=== PATIENT | female | born 1960 | race Caucasian/White ===

== ENCOUNTER → 2016-09-27 | Outpatient (CLI) | payer BC ==
[~2016-09-27] VITALS: Ht 162.6 cm; Wt 123.4 kg
[~2016-09-27] MED LIST: CABO60TA PO; CURC500C PO; GLUCPOW24 PO; HYDR50TAB PO; IRON1TAB PO; LIDOCAINE 2% INJ 100 MG/5 ML SDV (FOR ANES.) As Ordered ONE; LOSA50TA20 PO; MULT1TAB18 PO; NS 1,000 ML IV ONE; OMEG100011 PO; PROPOFOL 200 MG/20 ML VIAL As Ordered ONE; VITA500055 PO; VITATAB21 PO
--- NOTE | 2016-09-27 10:45 | ROOR ---
Patient Name: Marlys Ramirez Procedure Date: 09/27/2016 10:33 AM Date of : 1960 Age: 55 Room: [facility] Gender: Female Note Status: Finalized Procedure: Upper GI endoscopy Indications: Heartburn Providers: Jemal Pepper MD Referring MD: Neisha BETANCOURT DO Requesting Provider: Medicines: Monitored Anesthesia Care Complications: No immediate complications. Procedure: Pre-Anesthesia Assessment: - The heart rate, respiratory rate, oxygen saturations, blood pressure, adequacy of pulmonary ventilation, and response to care were monitored throughout the procedure. The Endoscope was introduced through the mouth, and advanced to the second part of duodenum. The upper GI endoscopy was accomplished without difficulty. The patient tolerated the procedure well. Findings: The Z-line was regular and was found 40 cm from the incisors. Localized mild inflammation characterized by aphthous ulcerations was found in the gastric fundus. The exam of the duodenum was otherwise normal. Impression: - Z-line regular, 40 cm from the incisors. - Acute gastritis. - No specimens collected. Recommendation: - Discharge patient to home. - Continue present medications. - Follow an antireflux regimen. - Return to referring physician. - Return to referring physician. - The findings and recommendations were discussed with the patient's family. Jemal Pepper MD Jemal Pepper MD 09/27/2016 10:44:57 AM This report has been signed electronically. Number of Addenda: 0 Note Initiated On: 09/27/2016 10:33 AM Estimated Blood Loss: Estimated blood loss: none.
--- NOTE | 2016-09-27 11:04 | ROOR ---
Patient Name: Marlys Ramirez Procedure Date: 09/27/2016 10:34 AM Date of : 1960 Age: 55 Room: [facility] Gender: Female Note Status: Finalized Procedure: Total Colonoscopy to Cecum Indications: Rectal bleeding Providers: Jemal Pepper MD Referring MD: Neisha BETANCOURT DO Requesting Provider: Medicines: Monitored Anesthesia Care Complications: No immediate complications. Procedure: Pre-Anesthesia Assessment: - The heart rate, respiratory rate, oxygen saturations, blood pressure, adequacy of pulmonary ventilation, and response to care were monitored throughout the procedure. The Colonoscope was introduced through the anus and advanced to the cecum, identified by appendiceal orifice and ileocecal valve. The colonoscopy was performed without difficulty. The patient tolerated the procedure well. The quality of the bowel preparation was good. Findings: The perianal and digital rectal examinations were normal. Non-bleeding internal hemorrhoids were found during retroflexion. The hemorrhoids were small and Grade I (internal hemorrhoids that do not prolapse). Multiple small and large-mouthed diverticula were found in the recto-sigmoid colon, sigmoid colon and descending colon. The exam was otherwise without abnormality on direct and retroflexion views. Impression: - Non-bleeding internal hemorrhoids. - Diverticulosis in the recto-sigmoid colon, in the sigmoid colon and in the descending colon. - The examination was otherwise normal on direct and retroflexion views. - No specimens collected. - The exam was otherwise normal to the cecum. Recommendation: - Patient has a contact number available for emergencies. The signs and symptoms of potential delayed complications were discussed with the patient. Return to normal activities tomorrow. Written discharge instructions were provided to the patient. - High fiber diet. - Discharge patient to home. - Continue present medications. - Repeat colonoscopy in 5 years for surveillance. - Return to referring physician. - The findings and recommendations were discussed with the patient's family. Jemal Pepper MD Jemal Pepper MD 09/27/2016 11:04:27 AM This report has been signed electronically. Number of Addenda: 0 Note Initiated On: 09/27/2016 10:34 AM Estimated Blood Loss: Estimated blood loss: none.
[2016-09-27 11:20] VITALS: BP 139/80
== END ==
LOC: M OPP 09:49
PROVIDERS: ATTEND Internal Medicine Gastroenterology
DX: K62.5 Hemorrhage of anus and rectum (principal); K64.0 First degree hemorrhoids; K57.30 Diverticulosis of large intestine without perforation or abscess without bleeding; Z86.010 Personal history of colon polyps; R12 Heartburn; K29.00 Acute gastritis without bleeding; I10 Essential (primary) hypertension; G47.30 Sleep apnea, unspecified; E66.9 Obesity, unspecified; Z79.899 Other long term (current) drug therapy; Z88.8 Allergy status to other drugs, medicaments and biological substances; Z87.42 Personal history of other diseases of the female genital tract; Z85.528 Personal history of other malignant neoplasm of kidney; Z09 Encounter for follow-up examination after completed treatment for conditions other than malignant neoplasm

== ENCOUNTER → 2016-12-13 | Outpatient (REF) | payer BC ==
[~2016-12-13] MED LIST changes: -LIDOCAINE 2% INJ 100 MG/5 ML SDV (FOR ANES.) As Ordered ONE; -NS 1,000 ML IV ONE; -PROPOFOL 200 MG/20 ML VIAL As Ordered ONE
== END ==
LOC: M SFHCWAGY 10:52
PROVIDERS: ATTEND Nurse Practitioner Women's Health
DX: Z12.4 Encounter for screening for malignant neoplasm of cervix (principal)

== ENCOUNTER → 2016-12-13 | Outpatient (CLI) | payer BC | LOC: M WHC 10:09 | PROVIDERS: ATTEND Nurse Practitioner Women's Health | DX: Z12.31 Encounter for screening mammogram for malignant neoplasm of breast (principal); Z53.9 Procedure and treatment not carried out, unspecified reason ==

== ENCOUNTER → 2017-12-14 | Outpatient (REF) | payer BC ==
[2017-12-18 15:09] LABS: HPV HYBRID CAPTURE II Negative (Negative)
== END ==
LOC: M SFHCWAGY 15:52
DX: Z12.4 Encounter for screening for malignant neoplasm of cervix (principal)
CPT/HCPCS: G0123

== ENCOUNTER → 2018-12-17 | Outpatient (REF) | payer BC ==
[~2018-12-17] MED LIST changes: -LOSA50TA20 PO; +LOSA50TA88 PO
== END ==
LOC: M SFHCWAGY 13:59
PROVIDERS: ATTEND Nurse Practitioner Women's Health
DX: Z12.4 Encounter for screening for malignant neoplasm of cervix (principal)
CPT/HCPCS: 87624; G0123

== ENCOUNTER → 2018-12-17 | Outpatient (CLI) | payer BC ==
--- NOTE | 2018-12-17 16:18 | REPMRS ---
Patient History The patient states she had a clinical breast exam in 12/2018. Patient is postmenopausal, has history of other cancer at age 54, is currently receiving chemotherapy, and is nulliparous. Family history of breast cancer at age 50 or over in maternal aunt, breast cancer at age 50 or over in maternal aunt, pancreatic cancer at age 50 or over in maternal aunt, prostate cancer in paternal uncle. US Guided Breast Biopsy of the right breast, July 25, 2016. Benign FNA biopsy of the left breast, 1982. Took progesterone for 9 months. Digital Woman Screen Mammo: December 17, 2018 - Exam #: [id number] Bilateral CC and MLO view(s) were taken. Technologist: Ne Cardenas, Technologist Prior study comparison: July 17, 2016, right breast digital mammo diagnostic unilateral, performed at [facility] and. October 18, 2015, digital woman screen mammo performed at [facility]. September 30, 2014, digital woman screen mammo performed at [facility]. FINDINGS: There are scattered fibroglandular densities. There has been no change in the appearance of the mammogram from the prior studies. There is a mild amount of scattered fibroglandular density which is fairly symmetric. There is no interval development of dominant mass, architectural distortion, or grouped microcalcification suggestive of malignancy. 3-D tomosynthesis shows no additional findings. Assessment: BI-RADS/ACR category 1 mammogram. Negative Mammogram. Recommendation Routine screening mammogram of both breasts in 1 year (for women over age 40). This patient's Lifetime Breast Cancer Risk is estimated at 16.0 %. This mammogram was interpreted with the aid of an FDA-approved computer-aided dectection system. Electronically Signed By: Blayne Corea MD 12/17/18 [id number]
== END ==
LOC: M WHC 10:23
PROVIDERS: ATTEND Nurse Practitioner Women's Health
DX: Z12.31 Encounter for screening mammogram for malignant neoplasm of breast (principal); Z80.3 Family history of malignant neoplasm of breast; Z80.0 Family history of malignant neoplasm of digestive organs; Z80.42 Family history of malignant neoplasm of prostate; Z79.899 Other long term (current) drug therapy

== ENCOUNTER → 2019-06-24 | Outpatient (REF) | payer BC | LOC: M LAB REF 16:01 | PROVIDERS: ATTEND Surgery | DX: L98.0 Pyogenic granuloma (principal); L91.8 Other hypertrophic disorders of the skin ==

== ENCOUNTER → 2019-07-16 | Outpatient (REF) | payer BC | LOC: M LAB REF 12:37 | PROVIDERS: ATTEND Surgery | DX: L98.0 Pyogenic granuloma (principal) ==

== ENCOUNTER 2019-09-08 12:38 | Outpatient (CLI) | payer BC ==
[~2019-09-08] VITALS: Ht 162.6 cm; Wt 74.8 kg
[2019-09-08 12:40] VITALS: BP 128/73
[2019-09-08] MEDS: MAG SULF 1GM/100ML (MAG RUN) X 2 DOSES (2GM TOTAL) IV SCH ×4 (13:04→14:02)
[2019-09-08] MEDS ORDERED: MAGN1CAP PO (13:14)
[2019-09-08] MEDS ORDERED: LEVO175T19 PO (13:14)
[2019-09-08] MEDS ORDERED: [UNRECOGNIZED DRUG - CODE] PO (13:14)
[2019-09-08] MEDS ORDERED: XGEVINJ SC (13:14)
[2019-09-08] MEDS ORDERED: ESOM1CAP5 PO (13:14)
[2019-09-08] MEDS ORDERED: CALCTAB89 PO (13:14)
[2019-09-08] MEDS ORDERED: OPDI240I IV (13:14)
[2019-09-08] MEDS ORDERED: DIPH2.5T15 PO (13:15)
[2019-09-08] MEDS ORDERED: SODIUM CHLORIDE 0.9% INJ 10 ML SYR IV PRN (15:00)
[2019-09-08 15:10] VITALS: BP 108/74
[2019-09-09] MEDS ORDERED: SODIUM CHLORIDE 0.9% INJ 10 ML SYR IV SCH (09:00)
== END 2019-09-08 15:20 | disposition home or self-care (01) ==
LOC: M INFU 12:38
PROVIDERS: ATTEND Family Medicine
DX: E83.42 Hypomagnesemia (principal)
CPT/HCPCS: 96365; 96366; J3475

== ENCOUNTER 2019-09-10 12:49 | Outpatient (CLI) | payer BC ==
[~2019-09-10] VITALS: Ht 162.6 cm; Wt 74.8 kg
[~2019-09-10 12:49] MED LIST changes: +CALCTAB89 PO; +DIPH2.5T15 PO; +ESOM1CAP5 PO; +LEVO175T19 PO; +MAGN1CAP PO; +OPDI240I IV; +XGEVINJ SC; +[UNRECOGNIZED DRUG - CODE] PO
[2019-09-10 12:50] VITALS: BP 109/73
[2019-09-10] MEDS: MAG SULF 1GM/100ML (MAG RUN) X 2 DOSES (2GM TOTAL) IV SCH ×4 (12:55→13:58)
[2019-09-10] MEDS ORDERED: SODIUM CHLORIDE 0.9% INJ 10 ML SYR IV PRN (13:00)
[2019-09-10 15:00] VITALS: BP 124/73
[2019-09-11] MEDS ORDERED: SODIUM CHLORIDE 0.9% INJ 10 ML SYR IV SCH (09:00)
== END 2019-09-10 15:20 | disposition home or self-care (01) ==
LOC: M INFU 12:49
PROVIDERS: ATTEND Family Medicine
DX: E83.42 Hypomagnesemia (principal)
CPT/HCPCS: 96365; 96366; J1642; J3475

== ENCOUNTER → 2019-10-23 | Outpatient (REF) | payer BC | LOC: M LAB REF 16:44 | PROVIDERS: ATTEND Family Medicine | DX: E03.9 Hypothyroidism, unspecified (principal) ==

== ENCOUNTER → 2020-02-18 | Outpatient (REF) | payer BC | LOC: M LAB REF 17:01 | PROVIDERS: ATTEND Surgery | DX: S51.009D Unspecified open wound of unspecified elbow, subsequent encounter (principal); W18.30XD Fall on same level, unspecified, subsequent encounter; Y92.009 Unspecified place in unspecified non-institutional (private) residence as the place of occurrence of the external cause ==

== ENCOUNTER → 2020-03-30 | Outpatient (REF) | payer BC ==
[2020-03-30 17:48] LABS: PERCENT SATURATION 12.9 % (13.2-45.0)
[2020-03-30 18:13] LABS: FOLATE 11.6 NG/ML
== END ==
LOC: M LAB REF 16:59
PROVIDERS: ATTEND Internal Medicine Nephrology
DX: D64.9 Anemia, unspecified (principal)

== ENCOUNTER → 2020-04-05 | Outpatient (REF) | payer BC | LOC: M SFHCWAGY 16:47 | PROVIDERS: ATTEND Nurse Practitioner Women's Health | DX: Z12.4 Encounter for screening for malignant neoplasm of cervix (principal); Z01.419 Encounter for gynecological examination (general) (routine) without abnormal findings ==

== ENCOUNTER → 2020-04-05 | Outpatient (CLI) | payer BC ==
--- NOTE | 2020-04-05 16:11 | REPMRS ---
Patient History The patient states she had a clinical breast exam in 04/2020. Patient is postmenopausal, has history of stage 4 renal cancer at age 54, had previous chemotherapy, and is nulliparous. Family history of breast cancer at age 50 or over in maternal aunt, breast cancer at age 50 or over in maternal aunt, pancreatic cancer at age 50 or over in maternal aunt, prostate cancer in paternal uncle. US Guided Breast Biopsy of the right breast, July 25, 2016. Benign FNA biopsy of the left breast, 1982. Took progesterone for 9 months. Digital Woman Screen Mammo: April 05, 2020 - Exam #: [id number] Bilateral CC and MLO view(s) were taken. Technologist: Penelope Hughes, Technologist Prior study comparison: December 17, 2018, bilateral digital woman screen mammo performed at [facility] and [facility]. July 17, 2016, right breast digital mammo diagnostic unilateral, performed at [facility]. FINDINGS: The breast tissue is extremely dense which could obscure a lesion on mammography. The Volpara volumetric breast density category is: D. Breast parenchymal density has increased relative to interval weight loss. An Qulhte-X-Dwdh device is seen over the left axilla on the MLO view. There is an extremely dense symmetrical pattern of residual fibroglandular tissue. There has been no change in the appearance of the mammogram from the previous studies. There is no interval development of dominant mass, archetectural distortion, or grouped microcalcifications suggestive of malignancy. 3-D tomosynthesis shows no additional findings. Assessment: BI-RADS/ACR category 2 mammogram. Benign Findings. Recommendation Routine screening mammogram of both breasts in 1 year (for women over age 40). This patient's [facility] Lifetime Breast Cancer RIsk is estimated at 15.6 %. This mammogram was interpreted with the aid of an FDA-approved computer-aided dectection system. Electronically Signed By: Blayne Corea MD 04/05/20 [id number]
== END ==
LOC: M WHC 13:41
PROVIDERS: ATTEND Nurse Practitioner Women's Health
DX: Z12.31 Encounter for screening mammogram for malignant neoplasm of breast (principal); Z85.528 Personal history of other malignant neoplasm of kidney; Z92.21 Personal history of antineoplastic chemotherapy; Z80.3 Family history of malignant neoplasm of breast; Z80.0 Family history of malignant neoplasm of digestive organs; Z80.42 Family history of malignant neoplasm of prostate